=== PATIENT | male | born 1980 | race Caucasian/White ===

== ENCOUNTER 2016-08-26 14:45 | Emergency (ER) | payer BC, OTHER ==
[2016-08-26 14:54] VITALS: BP 145/82
[2016-08-26 15:26] LABS: CHLORIDE,CL 98 mmol/L (101-111); SODIUM,NA 137 mmol/L (135-145)
[2016-08-26 15:28] LABS: ACETAMINOPHEN < 10
[2016-08-26] MEDS ORDERED: Bacitracin Oint 1 GM U/D Packet TOP ONE (15:39)
--- NOTE | 2016-08-26 15:48 | EDM.PDOC ---
[facility] Behavioral Health - General Chief Complaint: Behavioral/Psych Time Seen by Provider: 08/26/16 15:30 Source of Information: Reports: Patient Exam Limitations: Reports: Altered mental status - History of Present Illness INITIAL COMMENTS - FREE TEXT/NARRATIVE: This 36 yo male patient reports to the ED due to difficulties at work. The patient reports he has been having trouble at work since he started working in his current position. The patient reports his coworkers have been calling him different names (de anda, etc.) and making perceived threats against him. The patient reports he feels unsafe being at work. The patient reports he is single and lives alone. The patient admits to drinking ETOH to deal with what is happening. The patient reports he has about 3 beers this morning before going to work. The patient also reports drinking last night. The patient reports he has a hard time sleeping or doing things without ETOH. The patient reports that he does not really feel like quitting, but knows he should. The patient reports he was seen in [place] in the past for a mental breakdown. The patient does not want to be on any medications. The patient reports he does not currently see anyone for mental health and was not very interested in talking with anyone at this time. The patient reports he does have a burn on his left lateral distal thigh (got the burn last while at work). 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 The patient reports his house may be dirty, but he does not like people getting "into his head" trying to change his behavior. Onset of Symptoms: Reports: gradual Duration of Symptoms: Reports: Week(s): Severity: severe Context, Behavioral Health: Reports: living situation, school/work, family dynamics Associated Symptoms: Reports: anxiety, depression - SAD Persons Scale (SPS) SPS Sex: Male SPS Age: Between 18-65 Years of Age SPS Depression: No SPS Previous Suicide Attempts: No SPS Alcohol Abuse/Drug Abuse: Yes SPS Rational Thinking Loss: Yes SPS Social Support Deficit: No SPS Organized Suicide Plan: No SPS No Spouse/Significant Other: No SPS Sickness: No SPS Sad Person Scale Score: 3 - Related Data Allergies Allergy/AdvReac Type Severity Reaction Status Date / Time Sulfa (Sulfonamide Allergy Cannot Verified 08/26/16 14:46 Antibiotics) Remember Home Medications: Home Meds . [No Known Home Meds] 08/26/16 [History] Past Medical History - Past Health History Medical/Surgical History: Denies Medical/Surgical History Social & Family History - Tobacco Use Smoking Status *Q: Current Every Day Smoker Years of Tobacco use: 15 Packs/Tins Daily: 2 - Caffeine Use Caffeine Use: Reports: Soda - Alcohol Use Days Per Week of Alcohol Use: 7 Number of Drinks Per Day: 12 Total Drinks Per Week: 84 Date of Last Drink: 08/26/16 Time of Last Drink: 08:00 - Recreational Drug Use Recreational Drug Use: No ED ROS GENERAL - Review of Systems Review Of Systems: ROS reveals no pertinent complaints other than HPI. ED EXAM, BEHAVIORAL HEALTH - Physical Exam Exam: See Below Exam Limited By: No limitations General Appearance: alert, WD/WN, moderate distress Eye Exam: bilateral eye: EOMI, normal inspection, PERRL Ears: normal external exam, normal canal, hearing grossly normal, normal TMs Nose: normal inspection, normal mucosa, no blood Throat/Mouth: Normal inspection, Normal lips, Normal teeth, Normal gums, Normal oropharynx, Normal voice, No airway compromise Head: atraumatic, normocephalic Neck: normal inspection, supple, non-tender, full range of motion Respiratory/Chest: no respiratory distress, lungs clear, normal breath sounds, no accessory muscle use, chest non-tender Cardiovascular: normal peripheral pulses, regular rate, rhythm, no edema, no gallop, no JVD, no murmur, no rub GI/Abdominal: normal bowel sounds, soft, non tender, no organomegaly, no distention, no abnormal bruit, no mass (Male) Exam: Deferred Rectal (Males) Exam: Deferred Back Exam: normal inspection, full range of motion, NT Extremities: normal inspection, normal range of motion, non-tender, normal capillary refill, no pedal edema Neurological: alert, normal mood/affect, CN II-XII intact, normal cognition, normal gait, normal reflexes, no motor/sensory deficits, oriented x 3 Psychiatric: flat affect, agitated, poor eye contact, withdrawn Skin Exam: Warm, Dry, Normal color, No rash, Other (The patient has a superficial burn to his left lateral lower leg.) COURSE, BEHAVIORAL HEALTH COMP - Course Vital Signs: Last Vital Signs Temp 36.9 C 08/26/16 14:52 Pulse 117 H 08/26/16 14:52 Resp 20 08/26/16 14:52 BP 145/82 H 08/26/16 14:52 Pulse Ox 100 08/26/16 14:52 Orders, Labs, Meds: Laboratory Tests 08/26/16 08/26/16 08/26/16 Range/Units 14:47 14:47 14:59 WBC 12.4 H (5.0-10.0) 10^3/uL RBC 4.86 (4.6-6.2) 10^6/uL Hgb 16.4 (14.0-18.0) g/dL Hct 48.5 (40.0-54.0) % MCV 99.8 (80-100) fL MCH 33.7 (27.0-34.0) pg MCHC 33.8 (33.0-35.0) g/dL Plt Count 260 (150-450) 10^3/uL Neut % (Auto) 74.5 (42.2-75.2) % Lymph % (Auto) 17.6 L (20.5-50.1) % Dickens % (Auto) 7.0 (2-8) % Eos % (Auto) 0.6 L (1.0-3.0) % Baso % (Auto) 0.3 (0.0-1.0) % Sodium (135-145) mmol/L Potassium (3.6-5.0) mmol/L Chloride (101-111) mmol/L Carbon Dioxide (21.0-31.0) mmol/L Anion Gap BUN (7-18) mg/dL Creatinine (0.6-1.3) mg/dL Est Cr Clr Drug Dosing mL/min Estimated GFR (MDRD) BUN/Creatinine Ratio Glucose (74-105) mg/dL Calcium (8.4-10.2) mg/dl Magnesium (1.8-2.5) mg/dL Total Bilirubin (0.2-1.0) mg/dL AST (10-42) IU/L ALT (10-60) IU/L Alkaline Phosphatase (42-121) IU/L Total Protein (6.7-8.2) g/dl Albumin (3.2-5.5) g/dl Globulin Albumin/Globulin Ratio TSH, Ultra Sensitive (0.35-7.0) uIu/mL Urine Color Yellow (YELLOW) Urine Appearance Clear (CLEAR) Urine pH 7.0 (5.0-9.0) Ur Specific [place] 1.020 (1.005-1.030) Urine Protein 30 H (NEGATIVE) Urine Glucose (UA) Negative (NEGATIVE) Urine Ketones Trace H (NEGATIVE) Urine Occult Blood Negative (NEGATIVE) Urine Nitrite Negative (NEGATIVE) Urine Bilirubin Negative (NEGATIVE) Urine Urobilinogen 0.2 (0.2-1.0) mg/dL Ur Leukocyte Esterase Negative (NEGATIVE) Urine RBC 0-5 /HPF Urine WBC 0-5 (0-5/HPF) /HPF Ur Epithelial Cells Rare /HPF Amorphous Sediment Few (0/HPF) /HPF Urine Bacteria Few (0-FEW/HPF) /HPF Urine Mucus Moderate H /LPF Salicylates Urine Opiates Screen Negative (NEGATIVE) Ur Oxycodone Screen Negative (NEGATIVE) Urine Methadone Screen Negative (NEGATIVE) Acetaminophen Ur Barbiturates Screen Negative (NEGATIVE) U Tricyclic Antidepress Negative (NEGATIVE) Ur Phencyclidine Scrn Negative (NEGATIVE) Ur Amphetamine Screen Negative (NEGATIVE) U Methamphetamines Scrn Negative (NEGATIVE) Urine MDMA Screen Negative (NEGATIVE) U Benzodiazepines Scrn Negative (NEGATIVE) Urine Cocaine Screen Negative (NEGATIVE) U Marijuana (THC) Screen Negative (NEGATIVE) Ethyl Alcohol mg/dL 08/26/16 08/26/16 Range/Units 14:59 14:59 WBC (5.0-10.0) 10^3/uL RBC (4.6-6.2) 10^6/uL Hgb (14.0-18.0) g/dL Hct (40.0-54.0) % MCV (80-100) fL MCH (27.0-34.0) pg MCHC (33.0-35.0) g/dL Plt Count (150-450) 10^3/uL Neut % (Auto) (42.2-75.2) % Lymph % (Auto) (20.5-50.1) % Dickens % (Auto) (2-8) % Eos % (Auto) (1.0-3.0) % Baso % (Auto) (0.0-1.0) % Sodium 137 (135-145) mmol/L Potassium 3.6 (3.6-5.0) mmol/L Chloride 98 L (101-111) mmol/L Carbon Dioxide 29.0 (21.0-31.0) mmol/L Anion Gap 13.6 BUN 8 (7-18) mg/dL Creatinine 0.7 (0.6-1.3) mg/dL Est Cr Clr Drug Dosing 146.47 mL/min Estimated GFR (MDRD) > 60 BUN/Creatinine Ratio 11.42 Glucose 161 H (74-105) mg/dL Calcium 9.3 (8.4-10.2) mg/dl Magnesium 2.0 (1.8-2.5) mg/dL Total Bilirubin 0.3 (0.2-1.0) mg/dL AST 33 (10-42) IU/L ALT 19 (10-60) IU/L Alkaline Phosphatase 83 (42-121) IU/L Total Protein 7.6 (6.7-8.2) g/dl Albumin 4.6 (3.2-5.5) g/dl Globulin 3.0 Albumin/Globulin Ratio 1.53 TSH, Ultra Sensitive 2.98 (0.35-7.0) uIu/mL Urine Color (YELLOW) Urine Appearance (CLEAR) Urine pH (5.0-9.0) Ur Specific [place] (1.005-1.030) Urine Protein (NEGATIVE) Urine Glucose (UA) (NEGATIVE) Urine Ketones (NEGATIVE) Urine Occult Blood (NEGATIVE) Urine Nitrite (NEGATIVE) Urine Bilirubin (NEGATIVE) Urine Urobilinogen (0.2-1.0) mg/dL Ur Leukocyte Esterase (NEGATIVE) Urine RBC /HPF Urine WBC (0-5/HPF) /HPF Ur Epithelial Cells /HPF Amorphous Sediment (0/HPF) /HPF Urine Bacteria (0-FEW/HPF) /HPF Urine Mucus /LPF Salicylates < 4 Urine Opiates Screen (NEGATIVE) Ur Oxycodone Screen (NEGATIVE) Urine Methadone Screen (NEGATIVE) Acetaminophen < 10 Ur Barbiturates Screen (NEGATIVE) U Tricyclic Antidepress (NEGATIVE) Ur Phencyclidine Scrn (NEGATIVE) Ur Amphetamine Screen (NEGATIVE) U Methamphetamines Scrn (NEGATIVE) Urine MDMA Screen (NEGATIVE) U Benzodiazepines Scrn (NEGATIVE) Urine Cocaine Screen (NEGATIVE) U Marijuana (THC) Screen (NEGATIVE) Ethyl Alcohol < 5 mg/dL Medications Discontinued Medications Generic Name Dose Route Start Last Admin Trade Name Freq PRN Reason Stop Dose Admin Bacitracin 1 dose 08/26/16 15:39 08/26/16 15:48 Bacitracin Oint 1 Gm TOP 08/26/16 15:40 1 dose ONETIME ONE Administration Departure - Departure Time of Disposition: 17:46 Disposition: DC/Tfer to Psych Hosp/Unit 65 Condition: poor Clinical Impression: Suicidal ideation, Self-harm, Anxiety, ETOH abuse Forms: Interfacility Transfer EMTALA Care Plan Goals: Discussed the history, examination and lab results with Dr. Allen ([facility] - [place]). Dr. Madrigal accepted the patient for continued evaluation and further management. The patient will be transported by family.
== END 2016-08-26 18:48 ==
LOC: DL.ED 14:45
DX: R45.851 Suicidal ideations (principal); F41.9 Anxiety disorder, unspecified; F10.10 Alcohol abuse, uncomplicated; F17.200 Nicotine dependence, unspecified, uncomplicated; Z88.2 Allergy status to sulfonamides
CPT/HCPCS: 36415; 80053; 80305; 81001; 83735; 84443; 85025; 99285; G0480

== ENCOUNTER 2025-01-13 14:01 | Emergency (ER) | payer OTHER ==
[2025-01-13] MEDS ORDERED: Sodium Chloride 0.9% 10 ML Syringe FLUSH PRN (14:34)
[2025-01-13] MEDS: Lactated Ringers 2,000 ML IV SCH (14:46)
[2025-01-13 14:50] LABS: BASOPHILS PERCENT AUTO 0.0 % (0.0-1.0); EOSINOPHILS PERCENT AUTO 0.1 % (1.0-3.0); LYMPHOCYTES PERCENT AUTO 4.7 % (20.5-50.1); MONOCYTES PERCENT AUTO 6.6 % (2-8); NEUTROPHILS PERCENT AUTO 88.6 % (42.2-75.2); PLATELET COUNT,PLT 307 10^3/uL (150-450); RED BLOOD CELL COUNT 3.98 10^6/uL (4.6-6.2); WHITE BLOOD CELL COUNT,WBC 24.0 10^3/uL (5.0-10.0)
[2025-01-13 15:11] LABS: ALANINE AMINOTRANSFERASE,ALT 23 U/L (16-63); ASPARTATE AMNIOTRANSFERASE,AST 12 U/L (15-37); BILIRUBIN TOTAL 0.7 mg/dL (0.2-1.0); BLOOD UREA NITROGEN,BUN 8 mg/dL (7-18); CARBON DIOXIDE,CO2 25 mmol/L (21-32); CREATININE 0.81 mg/dL (0.70-1.30); GLUCOSE RANDOM 145 mg/dL (70-99); PROTEIN TOTAL,TP 6.7 g/dL (6.4-8.2)
[2025-01-13 15:14] LABS: CHLORIDE,CL 100 mmol/L (98-107); LACTIC ACID 2.0 mmol/L (0.4-2.0); POTASSIUM,K 3.3 mmol/L (3.5-5.1); SODIUM,NA 134 mmol/L (136-145)
[2025-01-13 15:15] LABS: A/G RATIO 0.97; ESTIMATED GFR 112 mL/min (>=60); ETHANOL BLOOD MEDICAL < 3 mg/dL (0)
[2025-01-13] MEDS: Iopamidol 612 MG/ML 100 ML Bottle IVPUSH ONE (15:55)
[2025-01-13 16:01] LABS: APPEARANCE,URINE CLEAR (CLEAR); GLUCOSE,URINE NEGATIVE (NEGATIVE); OCCULT BLOOD,URINE NEGATIVE (NEGATIVE)
== END 2025-01-13 16:47 ==
LOC: DL.ED 14:01
DX: K52.9 Noninfective gastroenteritis and colitis, unspecified (principal); F17.210 Nicotine dependence, cigarettes, uncomplicated; Z88.2 Allergy status to sulfonamides
CPT/HCPCS: 36415; 71045; 74177; 80053; 80307; 81003; 83605; 85025; 87040; 87493; 96360; 99284; A9270; J7120; Q9967